=== PATIENT | female | born 1985 | race Caucasian/White ===

== ENCOUNTER 2021-09-14 16:55 | Emergency (ER) | payer BC ==
[~2021-09-14] VITALS: Ht 160 cm; Wt 77.0 kg
[2021-09-14 17:12] VITALS: BP 120/47
[2021-09-14] MEDS ORDERED: ACETAMINOPHEN 325MG TABLET PO ONE (20:30)
[2021-09-14 23:11] LABS: BASOPHILS % 0.6 % (0.0-2.0); EOSINOPHILS % 1.2 % (0.0-5.0); HEMATOCRIT. 34.7 % (36.0-48.0); HEMOGLOBIN. 10.7 g/dL (12.0-16.0); LYMPHOCYTES % 19.5 % (20.0-50.0); MEAN CORPUSCULAR HEMOGLOBIN 20.6 pg (28.0-32.0); MEAN CORPUSCULAR VOLUME 66.7 fL (81.0-99.0); MEAN PLATELET VOLUME 7.8 fl (7.4-10.4); MONOCYTES % 6.4 % (2.0-8.0); NEUTROPHILS % 72.3 % (40.0-76.0); PLATELET 430 x1000/uL (130-400); RED BLOOD CELL COUNT 5.21 mill/uL (4.2-5.4); RED CELL DISTRIBUTION WIDTH 21.8 % (11.6-14.6)
[2021-09-14 23:17] LABS: CHLORIDE 107 mEq/L (98-107)
[2021-09-14 23:57] LABS: B-HCG QUANTITATIVE 2915 mIU/mL (<3)
[2021-09-15 00:15] LABS: PLATELET ESTIMATE NORMAL
[2021-09-15] MEDS ORDERED: METHOTREXATE SODIUM/PF 50 MG/2 ML VIAL IM ONE (03:00)
[2021-09-15] MEDS ORDERED: METHOTREXATE SODIUM/PF 50 MG/2 ML VIAL IM NR (03:30)
== END 2021-09-15 06:08 | disposition home or self-care (01) ==
LOC: ER 16:55
DX: O03.9 Complete or unspecified spontaneous abortion without complication (principal); Z98.890 Other specified postprocedural states
CPT/HCPCS: 36415; 76801; 76817; 80053; 84702; 85025; 86850; 86900; 86901; 96372; 99291; J9260

== ENCOUNTER 2021-09-17 15:01 | Emergency (ER) | payer BC ==
[~2021-09-17] VITALS: Ht 160 cm; Wt 77.0 kg
[2021-09-17 15:12] VITALS: BP 113/59
[2021-09-17] MEDS ORDERED: ACETAMINOPHEN 325MG TABLET PO ONE (16:45)
[2021-09-17 16:52] LABS: BASOPHILS % 0.5 % (0.0-2.0); EOSINOPHILS % 1.9 % (0.0-5.0); HEMATOCRIT. 33.8 % (36.0-48.0); HEMOGLOBIN. 10.3 g/dL (12.0-16.0); LYMPHOCYTES % 24.5 % (20.0-50.0); MEAN CORPUSCULAR HEMOGLOBIN 20.6 pg (28.0-32.0); MEAN CORPUSCULAR VOLUME 67.5 fL (81.0-99.0); MEAN PLATELET VOLUME 7.8 fl (7.4-10.4); MONOCYTES % 2.7 % (2.0-8.0); NEUTROPHILS % 70.4 % (40.0-76.0); PLATELET 422 x1000/uL (130-400); RED BLOOD CELL COUNT 5.01 mill/uL (4.2-5.4); RED CELL DISTRIBUTION WIDTH 22.5 % (11.6-14.6)
[2021-09-17 16:59] LABS: CHLORIDE 108 mEq/L (98-107)
[2021-09-17 17:11] LABS: B-HCG QUANTITATIVE 372 mIU/mL (<3)
[2021-09-17 18:10] LABS: PLATELET ESTIMATE SLIGHTLY INCREASED
[2021-09-17] MEDS ORDERED: TOPUD MT (18:45)
== END 2021-09-17 19:14 | disposition home or self-care (01) ==
LOC: ER 15:01
DX: O03.9 Complete or unspecified spontaneous abortion without complication (principal); O46.91 Antepartum hemorrhage, unspecified, first trimester; Z3A.01 Less than 8 weeks gestation of pregnancy; Z98.890 Other specified postprocedural states
CPT/HCPCS: 36415; 76801; 80053; 84702; 85025; 86850; 86900; 99284